=== PATIENT | female | born 1950 | race Caucasian/White ===

== ENCOUNTER → 2016-10-24 | Outpatient (CLI) | payer MEDICARE | LOC: KOH-I 12:55 | DX: J43.9 Emphysema, unspecified (principal) | CPT/HCPCS: 71020 ==

== ENCOUNTER → 2021-02-26 | Outpatient (CLI) | payer MEDICARE | LOC: KOH-I 12:10 | DX: J43.9 Emphysema, unspecified (principal) | CPT/HCPCS: 71046 ==

== ENCOUNTER → 2022-04-15 | Outpatient (CLI) | payer MEDICARE | LOC: KOH-I 13:10 | DX: J43.9 Emphysema, unspecified (principal) | CPT/HCPCS: 71046 ==